=== PATIENT | female | born 1965 | race Caucasian/White ===

== ENCOUNTER → 2018-03-09 | Day surgery (SDC) | payer OTHER ==
[~2018-03-09] MED LIST: ACETAMINOPHEN 1000 MG/100 ML IV ONE; B COMPLEX1 EACH PO; BUPIVACAINE HCL 0.5% 10ML MPF VIAL INJ ONE; CALCIUM 500 +1 EAC4 PO; CEFAZOLIN SOD 1 GM VIAL IV NR; CEFAZOLIN SOD 1 GM/D5W 50ML 50 ML IV ONE; DEXAMETHASONE SOD PHOS INJ 4 MG/ML VIAL ONE; FENTANYL CITRATE/PF 100MCG/2 ML INJ ONE; FLUDROCORTISON0.1 MG PO; LEVOTHYROXINE75 MCG PO; LIDOCAINE HCL 2% LOCAL INJ 5 ML SDV VIAL INJ ONE; LIOTHYRONINE SO5 MCG PO; MIDAZOLAM HCL 2 MG/2 ML VIAL ONE; MULTI-VITAMIN1 EACH PO; ONDANSETRON HCL INJ 2 MG/ML VIAL ONE; PROPOFOL IV EMULSION 10 MG/ML 20 ML VIAL ONE; SEVOFLURANE INHAL SOLN 250 ML PEN BTL ONE
--- NOTE | 2018-03-09 07:46 | Operative Report ---
DATE OF PROCEDURE: March 09, 2018 PREOPERATIVE DIAGNOSES 1. 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 2. Left foot 3rd interspace neuroma. POSTOPERATIVE DIAGNOSES 1. 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 2. Left foot 3rd interspace neuroma. PLANNED PROCEDURES 1. Left excision of 2nd space neuroma. 2. Excision of left 3rd interspace neuroma. DETAIL SUPERVISOR: None. ANESTHESIA: General with a postoperative block consisting of 15 mL of 0.5% Marcaine plain mixed with 1 mL of dexamethasone phosphate. HEMOSTASIS: Pneumatic ankle tourniquet set at 250 mmHg for a total time of approximately 20 minutes. MATERIALS: 3-0 Vicryl, 4-0 Prolene. ESTIMATED BLOOD LOSS: Less than 10 mL. PATHOLOGY: None. DETAILS OF PROCEDURE: Patient was seen in the preoperative waiting room where the correct procedure and site was identified. The patient was brought into the operating room and placed on the operating table in the supine position. General anesthesia was initiated at this time. A well-padded pneumatic tourniquet was placed about the patient's left thigh. The left foot, ankle and leg was then scrubbed, prepped and draped in the usual aseptic manner. The left foot, ankle and leg was exsanguinated with an Esmarch bandage and the ankle tourniquet was inflated to 250 mmHg for a total time of approximately 20 minutes. Attention was directed to the dorsal aspect of the patient's left 3rd interspace where a 4 cm linear incision was made directly between the 3rd and 4th metatarsals. The incision was carried through the subcutaneous tissues them from deeper underlying structures. All vital neurovascular structure were identified and retracted medially and laterally. All bleeders were cauterized or ligated as deemed necessary. At this time, the deep transverse metatarsal ligament was incised to allow for good visualization of the intermetatarsal nerve. The nerve appeared to be inflamed, tortuous and dilated. The nerve was grasped with a hemostat and dissected distally to the proper digital branches and proximally along the 3rd interspace. It was cut distally distal to the bifurcation, pulled distally and cut proximally and allowed to retract into the foot. The wound was then flushed with copious amounts of sterile saline. Deep tissue was reapproximated with 3-0 Vicryl. Subcutaneous tissue with 3-0 Vicryl and the skin was closed using a running interlocking stitch with 4-0 Prolene. Left excision of 2nd interspace neuroma. The same procedure was performed as stated above with no additions, subtractions or modifications, and the same excellent result was achieved. Both incision sites were then dressed with Adaptic, 4 x 4s, Kerlix, Mack wrap, and a postop shoe. The patient tolerated the procedure and anesthesia well. Patient was transferred to postoperative recovery unit with vital signs stable and vascular status intact. The patient was monitored there for a short period of time before being sent home with the following written and oral instructions: 1. Keep the dressing clean, dry and intact. 2. The patient is to remain partial weightbearing in a postop shoe and to avoid excessive ambulation until being seen in the office. 3. The patient was given the office number and instructed to contact us if any problems arise. Job#: [id number]
== END | disposition home or self-care (01) ==
LOC: OR 05:09
PROVIDERS: ATTEND Podiatrist Foot & Ankle Surgery
DX: G57.62 Lesion of plantar nerve, left lower limb (principal); I10 Essential (primary) hypertension; Z91.048 Other nonmedicinal substance allergy status; E03.9 Hypothyroidism, unspecified; R00.1 Bradycardia, unspecified; Z88.6 Allergy status to analgesic agent; Z01.810 Encounter for preprocedural cardiovascular examination
CPT/HCPCS: 28080 ×2; 93005; J1100; J2001; J2250; J2405

== ENCOUNTER 2025-04-03 12:30 | Emergency (ER) | payer BC, OTHER ==
[~2025-04-03] VITALS: Ht 162.6 cm; Wt 66.2 kg
[~2025-04-03 12:30] MED LIST changes: -ACETAMINOPHEN 1000 MG/100 ML IV ONE; -BUPIVACAINE HCL 0.5% 10ML MPF VIAL INJ ONE; -CEFAZOLIN SOD 1 GM VIAL IV NR; -CEFAZOLIN SOD 1 GM/D5W 50ML 50 ML IV ONE; -DEXAMETHASONE SOD PHOS INJ 4 MG/ML VIAL ONE; -FENTANYL CITRATE/PF 100MCG/2 ML INJ ONE; -LIDOCAINE HCL 2% LOCAL INJ 5 ML SDV VIAL INJ ONE; -MIDAZOLAM HCL 2 MG/2 ML VIAL ONE; -ONDANSETRON HCL INJ 2 MG/ML VIAL ONE; -PROPOFOL IV EMULSION 10 MG/ML 20 ML VIAL ONE; -SEVOFLURANE INHAL SOLN 250 ML PEN BTL ONE
[2025-04-03 13:00] VITALS: PULSE 102; RESP 16; TEMP 98.5; O2SAT 100
[2025-04-03] MEDS: CYCLOBENZAPRINE HCL 10 MG TAB PO ONE (13:39)
[2025-04-03] MEDS: KETOROLAC TROMETHAMINE 60 MG/2 ML VIAL IM ONE (13:40)
[2025-04-03] MEDS ORDERED: CYCLOBENZAPRINE10 MG PO (14:57)
== END 2025-04-03 15:30 | disposition home or self-care (01) ==
LOC: ER 13:09
DX: M54.50 Low back pain, unspecified (principal); G89.29 Other chronic pain; R20.2 Paresthesia of skin; X50.0XXA Overexertion from strenuous movement or load, initial encounter; Y92.89 Other specified places as the place of occurrence of the external cause; E03.9 Hypothyroidism, unspecified
CPT/HCPCS: 99283; J1885